=== PATIENT | male | born 1970 | race Caucasian/White ===

== ENCOUNTER 2016-05-25 02:16 | Emergency (ER) | payer MEDICARE, MEDICAID ==
[2016-05-25] MEDS ORDERED: ASPIRIN 81 MG CHEW TABLET As Ordered ONE (03:27)
[2016-05-25 03:44] LABS: MEAN CORPUSCULAR HEMOGLOBIN 29.7 pg (27.0-33.0); MEAN CORPUSCULAR HGB CONC 36.7 g/dl (32.0-36.5); MEAN CORPUSCULAR VOLUME 80.8 fl (80.0-96.0); RED CELL DISTRIBUTION WIDTH 12.5 % (11.5-14.5); WHITE BLOOD COUNT 3.3 K/mm3 (4.0-10.0)
[2016-05-25 05:04] LABS: ANION GAP 10 MEQ/L (8-16); BLOOD UREA NITROGEN 12 MG/DL (7-18); CALCIUM LEVEL 8.5 MG/DL (8.5-10.1); CARBON DIOXIDE LEVEL 25 MEQ/L (21-32); CHLORIDE LEVEL 107 MEQ/L (98-107); CREATININE FOR GFR 1.07 MG/DL (0.70-1.30); GLOMERULAR FILTRATION RATE > 60.0 (>60); GLUCOSE, FASTING 112 MG/DL (70-105); SODIUM LEVEL 142 MEQ/L (136-145)
[2016-05-25] MEDS ORDERED: ISOVUE-370 76% 100ML VIAL (Q9967) As Ordered ONE (05:34)
--- NOTE | 2016-05-25 07:16 | ECGEPIP ---
Stationary ECG Study 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
--- NOTE | 2016-05-25 07:30 | REPUSA ---
CLINICAL HISTORY: Dyspnea, exclude PE. TECHNIQUE: Multiple incremental axial, coronal and oblique images are obtained from the thoracic inle t to the upper abdomen. Intravenous contrast material was administered as per pulmonary embolism prot ocol. COMMENTS: There is excellent opacification of pulmonary arterial system without evidence for pulmonary embolism . Aorta is of normal caliber without evidence for dissection or aneurysm. There is no evidence of pleural or parenchymal mass. Bilateral basilar atelectatic pulmonary changes. There are no pleural effusions. There is no evidence of hilar or mediastinal lymphadenopathy. The he art and great vessels are within normal limits. Images of the upper abdomen demonstrate no evidence of adrenal mass. The bony structures are free of lytic or blastic lesions. IMPRESSION: No evidence for pulmonary embolism. Bilateral basilar atelectatic pulmonary changes. Thank you for your kind referral of this patient.
--- NOTE | 2016-05-25 07:40 | REPUSA ---
CLINICAL HISTORY: Dyspnea, exclude PE. TECHNIQUE: Multiple incremental axial, coronal and oblique images are obtained from the thoracic inle t to the upper abdomen. Intravenous contrast material was administered as per pulmonary embolism prot ocol. COMMENTS: There is excellent opacification of pulmonary arterial system without evidence for pulmonary embolism. Aorta is of normal caliber without evidence for dissection or aneurysm. There is no evidence of pleural or parenchymal mass. Bilateral basilar atelectatic pulmonary changes. There are no pleural effusions. There is no evidence of hilar or mediastinal lymphadenopathy. The heart and great vessels are within normal limits. Images of the upper abdomen demonstrate no evidence of adrenal mass. The bony structures are free of lytic or blastic lesions. IMPRESSION: No evidence for pulmonary embolism. Bilateral basilar atelectatic pulmonary changes. Thank you for your kind referral of this patient.
--- NOTE | 2016-05-25 10:20 | EDDOCDS ---
Physician Documentation [facility] Name: Ramírez Diaz Jr Age: 45 yrs Sex: Male : 1970 Arrival Date: 05/25/2016 Time: 02:16 Bed OBSERVATION Private MD: Raisa Sagastume Disposition: 05/25/16 09:58 Discharged to Home/Self Care. Impression: Other chest pain. - Condition is Stable. - Discharge Instructions: Angina Pectoris, Pleurisy, Nonspecific Chest Pain, Chest Wall Pain, Costochondritis. - Prescriptions for Naprosyn 500 mg Oral Tablet - take 1 tablet by ORAL route 2 times per day take with food; 30 tablet. Aspirin 81 mg - take 1 tablet by ORAL route once daily; 90 tablet. - Medication Reconciliation, Local Pharmacy Hours form. - Follow up: Raisa Sagastume; When: 1 - 2 days. - Problem is new. - Symptoms have improved. Historical: - Allergies: PENICILLINS; - Home Meds: 1. none - PMHx: Crohn's; - PSHx: none; - Social history: Smoking status: Chewing Tobacco Patient/guardian denies using alcohol, street drugs, No barriers to communication noted, The patient speaks fluent Togolese. - Family history: Not pertinent. - : The pt / caregiver states he / she is not on anticoagulants. Home medication list is obtained from the patient. - Exposure Risk Screening:: None identified. Vital Signs: 05/25 02:49 BP 139 / 82 (auto/); jp6 02:50 Pulse 88 MON; Pulse Ox 97% ; jp6 03:04 BP 142 / 79 (auto/); jp6 03:04 Pulse 84 MON; Pulse Ox 96% ; jp6 03:19 BP 143 / 76 (auto/); jp6 03:19 Pulse 88 MON; Pulse Ox 95% ; jp6 03:34 BP 131 / 68 (auto/); jp6 03:34 Pulse 86 MON; Pulse Ox 96% ; jp6 03:49 BP 144 / 77 (auto/); jp6 03:49 Pulse 92 MON; Pulse Ox 99% ; jp6 04:41 Pulse 94 MON; Pulse Ox 98% ; jp6 05:03 Pulse 98 MON; Pulse Ox 97% ; jp6 05:30 Pulse 96 MON; Pulse Ox 98% ; jp6 06:00 Pulse 88 MON; Pulse Ox 98% ; jp6 06:30 Pulse 86 MON; Pulse Ox 98% ; jp6 06:30 BP 147 / 92; Pulse 84; Resp 16; Pulse Ox 99% on R/A; Pain 0/10; jp6 07:06 BP 148 / 65 (auto/); po 07:08 Pulse 86 MON; Resp 20; Temp 96.9(O); Pulse Ox 99% on 2 lpm NC; Pain 0/10; po 08:06 BP 126 / 71 (auto/); po 08:06 Pulse 86 MON; Resp 18; Pulse Ox 98% on 2 lpm NC; Pain 0/10; po 08:36 BP 135 / 77 (auto/); po 08:36 Pulse 84 MON; Resp 20; Pulse Ox 98% on 2 lpm NC; Pain 0/10; po 09:24 BP 134 / 71 (auto/); po 09:27 Pulse 80 MON; Resp 20; Pulse Ox 96% on 2 lpm NC; po 10:15 BP 136 / 78; Pulse 82 MON; Resp 18; Temp 96.7(O); Pulse Ox 96% on R/A; Pain 0/10; po MDM: 02:40 ECG WITH READING ER PHYS+CARDIAG ordered. EDMS 02:44 Aspirin 324 mg PO once ordered. cs11 02:49 IV Saline Lock ordered. cs11 02:49 Oxygen at 2L/min via NC ordered. cs11 02:50 Chest, 1 View Ordered. EDMS 02:51 CBC Ordered. EDMS 02:51 MED Profile Ordered. EDMS 02:51 Pt & Aptt Ordered. EDMS 02:51 Cardiac Marker Panel Ordered. EDMS 03:03 Financial registration complete. pm4 03:58 [facility] [place] was scanned into [employer] and attached to record. pm4 05:12 CBC Reviewed. cs11 05:12 MED Profile Reviewed. cs11 05:12 Pt & Aptt Reviewed. cs11 05:12 Cardiac Marker Panel Reviewed. cs11 05:12 NS 0.9% 1000 ml IV at bolus once ordered. cs11 05:13 CT Chest Angio R/O PE Ordered. EDMS 06:28 Misc Image Editor Order ordered. cs11 06:49 Misc Image Editor Order complete. deg 06:49 CARDIAC MARKER PANEL Ordered. EDMS 06:50 ECG WITH READING ER PHYS ordered. EDMS 09:19 EKG-ADULT Reviewed. sd1 09:19 Chest, 1 View Reviewed. sd1 09:19 CT Chest Angio R/O PE Reviewed. sd1 09:49 CARDIAC MARKER PANEL Reviewed. sd1 Administered Medications: 03:00 Drug: Aspirin 324 mg [aspirin 81 mg chewable tablet (4 tabs)] Route: PO; jp6 05:47 Drug: NS 0.9% 1000 ml [sodium chloride 0.9 % intravenous solution] Route: IV; Rate: jp6 bolus; Site: left antecubital; 08:27 Follow up: IV Status: Completed infusion; IV Intake: 1000ml po Signatures: Dispatcher [employer] EDPauline Myers MD MD sd1 Khalida Lee, Glaze Handler Unit deg Xu Rolle,RN RN po Fortino Austin, DO cs11 Geraldine Alicia RN RN jp6 Hiren Holden, Reg Reg pm4 The chart was reviewed and I authenticate all verbal orders and agree with the evaluation and treatment provided.Attachments: 03:58 [facility] Payment Agreement pm4 MTDD
--- NOTE | 2016-05-25 10:20 | EDDOCDS ---
Nurse's Notes [facility] Name: Bishop Sawant Jr Age: 45 yrs Sex: Male : 1970 Arrival Date: 05/25/2016 Time: 02:16 Bed OBSERVATION Private MD: Raisa Sagastume Diagnosis: Other chest pain Presentation: 05/25 02:31 Presenting complaint: Patient states: started with chest pain around 2300 w/ left arm jp6 numbness slight sob and heart racing. Aspirin was not taken prior to arrival. Adult Sepsis Screening: The patient does not have new or worsening altered mentation. Patient's respiratory rate is less than 22. Systolic blood pressure is greater than 100. Patient has a qSOFA score of 0- Negative Sepsis Screen. Suicide/Homicide risk assessment- the patient denies having any suicidal and/or homicidal ideations and does not present with any other emotional, behavioral or mental health complaints. Status: Patient is not a intermodal customer service or dependent. Transition of care: patient was not received from another setting of care. 02:31 Acuity: EVE Level 3 jp6 02:31 Method Of Arrival: Ambulance jp6 Triage Assessment: 02:34 General: Appears in no apparent distress, comfortable, Behavior is appropriate for age, jp6 cooperative. Pain: Denies pain. Pt Declines HIV testing. The patient is triaged at the bedside. See Assessment in Nurses Notes section of ED record. Neurological: No deficits noted. Level of Consciousness is awake, alert, Oriented to person, place, time. EENT: No deficits noted. Cardiovascular: Capillary refill < 3 seconds Heart tones S1 S2 Edema is absent. Chest pain. Respiratory: No deficits noted. Airway is patent Respiratory effort is even, unlabored, Respiratory pattern is regular, symmetrical, Breath sounds are clear bilaterally. GI: No deficits noted. : No deficits noted. Derm: Skin is pink, warm & dry. Musculoskeletal: No deficits noted. Historical: - Allergies: PENICILLINS; - Home Meds: 1. none - PMHx: Crohn's; - PSHx: none; - Social history: Smoking status: Chewing Tobacco Patient/guardian denies using alcohol, street drugs, No barriers to communication noted, The patient speaks fluent Ethiopian. - Family history: Not pertinent. - : The pt / caregiver states he / she is not on anticoagulants. Home medication list is obtained from the patient. - Exposure Risk Screening:: None identified. Screenin:49 Screening information is obtained from the patient. Fall risk: No risks identified. jp6 Assistance ADL's: requires no assistance with activities of daily living. Abuse/DV Screen: The patient / caregiver reports he/she is: not in a situation that causes fear, pain or injury. Nutritional screening: No deficits noted. Advance Directives: Currently, there is no health care proxy. There is no active DNR order. There is no living will. home support is adequate. Assessment: 03:52 Reassessment: Patient appears in no apparent distress at this time. Patient denies pain jp6 at this time. Patient states symptoms have improved. General: Appears in no apparent distress, comfortable, Behavior is appropriate for age, cooperative. Pain: Denies pain. Neurological: No deficits noted. EENT: No deficits noted. Cardiovascular: Rhythm is sinus rhythm No ectopy. Respiratory: No deficits noted. GI: No deficits noted. : No deficits noted. Derm: Skin is pink, warm & dry. Musculoskeletal: No deficits noted. 05:08 Reassessment: Patient appears in no apparent distress at this time. General: Appears in jp6 no apparent distress, comfortable. Pain: Denies pain. Neurological: Level of Consciousness is awake, alert, Oriented to person, place, time. Cardiovascular: Capillary refill < 3 seconds Rhythm is sinus rhythm No ectopy. Respiratory: Airway is patent Respiratory effort is even, unlabored, Respiratory pattern is regular, symmetrical. Derm: Skin is pink, warm & dry. 06:15 Reassessment: Patient appears in no apparent distress at this time. Patient states jp6 symptoms have improved. General: Appears in no apparent distress, comfortable, Behavior is appropriate for age, cooperative. Pain: Denies pain. Neurological: No deficits noted. EENT: No deficits noted. Cardiovascular: Capillary refill < 3 seconds Rhythm is sinus rhythm No ectopy. Respiratory: No deficits noted. GI: No deficits noted. : No deficits noted. Derm: Skin is pink, warm & dry. Musculoskeletal: No deficits noted. 07:20 Adult Sepsis Screening: The patient does not have new or worsening altered mentation. po Patient's respiratory rate is less than 22. Systolic blood pressure is greater than 100. Patient has a qSOFA score of 0- Negative Sepsis Screen. General: Appears in no apparent distress, comfortable, Behavior is appropriate for age, cooperative, pleasant. Pain: Denies pain. Neurological: Level of Consciousness is awake, alert, Oriented to person, place, time. Cardiovascular: Rhythm is sinus rhythm. Respiratory: Airway is patent Respiratory effort is even, unlabored. GI: Abdomen is obese, Bowel sounds present X 4 quads. Derm: Skin is intact, is healthy with good turgor, Skin is pink, warm & dry. 08:25 General: Appears in no apparent distress, comfortable, Behavior is appropriate for age, po cooperative, pleasant. Pain: Denies pain. Neurological: No deficits noted. Cardiovascular: Rhythm is sinus rhythm Chest pain is denied. Respiratory: Airway is patent Respiratory effort is even, unlabored. Derm: Skin is pink, warm & dry. 09:31 Adult Sepsis Screening: The patient does not have new or worsening altered mentation. po Patient's respiratory rate is less than 22. Systolic blood pressure is greater than 100. Patient has a qSOFA score of 0- Negative Sepsis Screen. 09:31 General: Appears in no apparent distress, comfortable, Behavior is appropriate for age, po cooperative. Pain: Denies pain. Neurological: No deficits noted. Cardiovascular: Rhythm is sinus rhythm Chest pain is denied. Respiratory: Airway is patent Respiratory effort is even, unlabored, Breath sounds are clear bilaterally. Derm: Skin is pink, warm & dry. 10:16 General: Appears in no apparent distress, comfortable, Behavior is appropriate for age, po cooperative, pleasant. Pain: Denies pain. Neurological: No deficits noted. Cardiovascular: Rhythm is sinus rhythm Chest pain is denied. Respiratory: Airway is patent Respiratory effort is even, unlabored. GI: No deficits noted. Derm: Skin is intact, is healthy with good turgor, Skin is pink, warm & dry. Vital Signs: 02:49 BP 139 / 82 (auto/); jp6 02:50 Pulse 88 MON; Pulse Ox 97% ; jp6 03:04 BP 142 / 79 (auto/); jp6 03:04 Pulse 84 MON; Pulse Ox 96% ; jp6 03:19 BP 143 / 76 (auto/); jp6 03:19 Pulse 88 MON; Pulse Ox 95% ; jp6 03:34 BP 131 / 68 (auto/); jp6 03:34 Pulse 86 MON; Pulse Ox 96% ; jp6 03:49 BP 144 / 77 (auto/); jp6 03:49 Pulse 92 MON; Pulse Ox 99% ; jp6 04:41 Pulse 94 MON; Pulse Ox 98% ; jp6 05:03 Pulse 98 MON; Pulse Ox 97% ; jp6 05:30 Pulse 96 MON; Pulse Ox 98% ; jp6 06:00 Pulse 88 MON; Pulse Ox 98% ; jp6 06:30 Pulse 86 MON; Pulse Ox 98% ; jp6 06:30 BP 147 / 92; Pulse 84; Resp 16; Pulse Ox 99% on R/A; Pain 0/10; jp6 07:06 BP 148 / 65 (auto/); po 07:08 Pulse 86 MON; Resp 20; Temp 96.9(O); Pulse Ox 99% on 2 lpm NC; Pain 0/10; po 08:06 BP 126 / 71 (auto/); po 08:06 Pulse 86 MON; Resp 18; Pulse Ox 98% on 2 lpm NC; Pain 0/10; po 08:36 BP 135 / 77 (auto/); po 08:36 Pulse 84 MON; Resp 20; Pulse Ox 98% on 2 lpm NC; Pain 0/10; po 09:24 BP 134 / 71 (auto/); po 09:27 Pulse 80 MON; Resp 20; Pulse Ox 96% on 2 lpm NC; po 10:15 BP 136 / 78; Pulse 82 MON; Resp 18; Temp 96.7(O); Pulse Ox 96% on R/A; Pain 0/10; po Vitals: 02:34 Log In Time N/A - ambulance arrival. jp6 ED Course: 02:17 Patient visited by Catina Hernandez PCA. tmm1 02:17 Raisa Sagastume is Private Physician. tmm1 02:17 Patient moved to Waiting tmm1 02:18 Patient moved to 18 tmm1 02:21 Geraldine Alicia,RN is Primary Nurse. jp6 02:31 Patient visited by Geraldine Alicia,CHATNAL. jp6 02:33 Triage Initiated jp6 02:35 Fortino Strickland DO is Attending Physician. cs11 02:35 Patient visited by Fortino Strickland DO. cs11 03:41 Patient visited by Geraldine Alicia,CHANTAL. jp6 03:41 Cardiac Marker Panel Sent. jp6 03:41 Pt & Aptt Sent. jp6 03:41 MED Profile Sent. jp6 03:41 CBC Sent. jp6 03:49 The patient / caregiver is instructed regarding the plan of care and ED course. Cardiac jp6 monitor on. Pulse ox on. NIBP on. 03:49 Maintain field IV. Dressing intact. Site clean & dry. Gauge & site: 18g left ac. IV jp6 with fluids not infusing freely, without good blood return. 03:49 Discontinued lock bleeding controlled, pressure dressing applied, No redness/swelling jp6 at site. 03:49 Inserted saline lock: 20 gauge in left hand and blood collected. No procedures done jp6 that require assistance. Labs drawn. (by ED staff). EKG done. (by ED staff). Reviewed by Fortino Strickland DO. O2 via nasal cannula \T\ 2L/min. 03:58 [facility] Payment Agreement was scanned into [employer] and attached to record. pm4 04:47 Patient visited by Geraldine Alicia RN. jp6 05:48 Patient visited by Geraldine Alicia RN. jp6 07:02 Attending Physician role handed off by Fortino Strickland DO sd1 07:02 Pauline Lr MD is Attending Physician. sd1 07:08 Placed in gown. Bed in low position. Call light in reach. po 07:08 IV is patent, is intact, is free of redness or swelling. with fluids infusing freely. po 07:09 Primary Nurse role handed off by Geraldine Alicia RN deg 07:23 EKG-ADULT Returned. EDMS 07:28 Xu Rolle RN is Primary Nurse. po 07:31 Patient moved to OBSERVATION sd1 08:05 Chest, 1 View Returned. EDMS 08:05 CT Chest Angio R/O PE Returned. EDMS 08:06 Patient visited by Xu Rolle RN. po 08:28 No apparent distress. Resting quietly. Pt visited by . po 08:28 Patient visited by Xu Rolle,CHANTAL. po 09:58 Raisa Sagastume is Referral Physician. sd1 10:15 Discontinued IV lock intact, bleeding controlled, pressure dressing applied, No po redness/swelling at site. Administered Medications: 03:00 Drug: Aspirin 324 mg [aspirin 81 mg chewable tablet (4 tabs)] Route: PO; jp6 05:47 Drug: NS 0.9% 1000 ml [sodium chloride 0.9 % intravenous solution] Route: IV; Rate: jp6 bolus; Site: left antecubital; Follow up: IV Status: Completed infusion; IV Intake: 1000ml po Intake: : IV: 1000.00ml; Total: 1000.00ml. po Order Results: Lab Order: CBC; [facility]05/25/16 03:38 Test: WHITE BLOOD COUNT; Value: 3.3; Range: 4.0-10.0; Abnormal: Below low normal; Units: K/mm3; Status: F Test: RED BLOOD COUNT; Value: 5.32; Range: 4.30-6.10; Units: M/mm3; Status: F Test: HEMOGLOBIN; Value: 15.8; Range: 14.0-18.0; Units: g/dl; Status: F Test: HEMATOCRIT; Value: 43.0; Range: 42.0-52.0; Units: %; Status: F Test: MEAN CORPUSCULAR VOLUME; Value: 80.8; Range: 80.0-96.0; Units: fl; Status: F Test: MEAN CORPUSCULAR HEMOGLOBIN; Value: 29.7; Range: 27.0-33.0; Units: pg; Status: F Test: MEAN CORPUSCULAR HGB CONC; Value: 36.7; Range: 32.0-36.5; Abnormal: Above high normal; Units: g/dl; Status: F Test: RED CELL DISTRIBUTION WIDTH; Value: 12.5; Range: 11.5-14.5; Units: %; Status: F Test: PLATELET COUNT, AUTOMATED; Value: 201; Range: 150-450; Units: k/mm3; Status: F Lab Order: MED Profile; SPEC05/25/16 04:32 Test: GLUCOSE, FASTING; Value: 112; Range: 70-105; Abnormal: Above high normal; Units: MG/DL; Status: F Test: BLOOD UREA NITROGEN; Value: 12; Range: 7-18; Units: MG/DL; Status: F Test: CREATININE FOR GFR; Value: 1.07; Range: 0.70-1.30; Units: MG/DL; Status: F Test: GLOMERULAR FILTRATION RATE; Value: > 60.0; Range: >60; Status: F Test: SODIUM LEVEL; Value: 142; Range: 136-145; Units: MEQ/L; Status: F Test: POTASSIUM SERUM; Value: 4.0; Range: 3.5-5.1; Units: MEQ/L; Status: F Test: CHLORIDE LEVEL; Value: 107; Range: 98-107; Units: MEQ/L; Status: F Test: CARBON DIOXIDE LEVEL; Value: 25; Range: 21-32; Units: MEQ/L; Status: F Test: ANION GAP; Value: 10; Range: 8-16; Units: MEQ/L; Status: F Test: CALCIUM LEVEL; Value: 8.5; Range: 8.5-10.1; Units: MG/DL; Status: F Test Note: ; Units are mL/min/1.73 m2 Chronic Kidney Disease Staging per NKF: Stage I & II GFR >=60 Normal to Mildly Decreased Stage III GFR 30-59 Moderately Decreased Stage IV GFR 15-29 Severely Decreased Stage V GFR <15 Very Little GFR Left ESRD GFR <15 on APPLIANCE REPAIRER Lab Order: Pt & Aptt; 05/25/16 04:32 Test: PROTHROMBIN TIME; Value: 13.3; Range: 12.3-14.5; Units: SECONDS; Status: F Test: INR; Value: 1.00; Status: F Test: PARTIAL THROMBOPLASTIN TIME; Value: 30.4; Range: 26.6-37.1; Units: SECONDS; Status: F Test Note: ; THERAPUTIC HUMAN INR VALUES INDICATIONS NORMAL RANGES PROPHYLAXIS/TREATMENT OF: VENOUS THROMBOSIS 2.0-3.0 PULMONARY EMBOLISM 2.0-3.0 PREVENTION OF SYSTEMIC EMBOLISM FROM: TISSUE HEART VALVES 2.0-3.0 ACUTE MYOCARDIAL INFARCTION 2.0-3.0 VALVULAR HEART DISEASE 2.0-3.0 ATRIAL FIBRILLATION 2.0-3.0 MECHANICAL VALVES(HIGH RISK) 2.5-3.5 RECURRENT MYOCARDIAL INFARCTION 2.5-3.5 Lab Order: Cardiac Marker Panel; SPEC05/25/16 04:32 Test: CPK CREATINE PHOSPHOKINASE; Value: 61; Range: 39-308; Units: U/L; Status: F Test: CK-MB VALUE MASS; Value: 1.0; Range: 0.0-3.6; Units: NG/ML; Status: F Test: MB/CK RELATIVE INDEX; Value: 1.63; Range: < OR =4; Status: F Test: TROPONIN I; Value: < 0.02; Range: < 0.10; Units: NG/ML; Status: F Test Note: ; DIAGNOSIS CRITERIA MMB ng/ml Relative Index (RI) NON-AMI < or = 5 N/A [place]ONE > 5 < or = 4 AMI > 5 > 4 Lab Order: CARDIAC MARKER PANEL; SPEC'M 05/25/16 09:20 Test: CPK CREATINE PHOSPHOKINASE; Value: 54; Range: 39-308; Units: U/L; Status: F Test: CK-MB VALUE MASS; Value: 1.0; Range: 0.0-3.6; Units: NG/ML; Status: F Test: MB/CK RELATIVE INDEX; Value: 1.85; Range: < OR =4; Status: F Test: TROPONIN I; Value: < 0.02; Range: < 0.10; Units: NG/ML; Status: F Test Note: ; DIAGNOSIS CRITERIA MMB ng/ml Relative Index (RI) NON-AMI < or = 5 N/A AL[place]ES ZONE > 5 < or = 4 AMI > 5 > 4 Radiology Order: EKG-ADULT Test: EKG-ADULT REASON FOR EXAMINATION: Chest Pain; Stationary ECG Study; [facility] - ED; ; Test Date: 2016-05-25; Pat Name: BISHOP SAWANT JR Department:; Room: -; 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 Intravenous contrast material was administered as per pulmonary embolism prot; ocol.; COMMENTS:; There is excellent opacification of pulmonary arterial system without evidence for pulmonary embolism; . Aorta is of normal caliber without evidence for dissection or aneurysm.; There is no evidence of pleural or parenchymal mass. Bilateral basilar atelectatic pulmonary changes.; There are no pleural effusions. There is no evidence of hilar or mediastinal lymphadenopathy. The he; art and great vessels are within normal limits.; Images of the upper abdomen demonstrate no evidence of adrenal mass.; The bony structures are free of lytic or blastic lesions.; IMPRESSION:; No evidence for pulmonary embolism.; Bilateral basilar atelectatic pulmonary changes.; Thank you for your kind referral of this patient.; ; Radiology Order: CT Chest Angio R/O PE Test: CT Chest Angio R/O PE REASON FOR EXAMINATION: Chest Pain; ; CLINICAL HISTORY: Dyspnea, exclude PE.; TECHNIQUE: Multiple incremental axial, coronal and oblique images are obtained from the thoracic inle; t to the upper abdomen. Intravenous contrast material was administered as per pulmonary embolism prot; ocol.; COMMENTS:; There is excellent opacification of pulmonary arterial system without evidence for pulmonary; embolism. Aorta is of normal caliber without evidence for dissection or aneurysm.; There is no evidence of pleural or parenchymal mass. Bilateral basilar atelectatic pulmonary; changes. There are no pleural effusions. There is no evidence of hilar or mediastinal; lymphadenopathy. The heart and great vessels are within normal limits.; Images of the upper abdomen demonstrate no evidence of adrenal mass.; The bony structures are free of lytic or blastic lesions.; IMPRESSION:; No evidence for pulmonary embolism.; Bilateral basilar atelectatic pulmonary changes.; Thank you for your kind referral of this patient.; ; Outcome: 09:58 Discharge ordered by Provider. sd1 10:18 Discharge Assessment: patient administered narcotics - no. The following High Risk po Discharge criteria are identified: None. Discharged to home ambulatory. Condition: improved. Discharge instructions given to patient, Instructed on discharge instructions, follow up and referral plans. medication usage, Demonstrated understanding of instructions, medications, Pt was receptive of discharge instructions/ teaching. Prescriptions given X 2. CT Study completed. Property sent home with patient. 10:19 Patient left the ED. po Signatures: Dispatcher [employer] EDMS Pauline Lr MD MD sd1 Khalida Lee, Lesson Instructor Unit deg Xu Rolle,RN RN po Fortino Strickland, DO cs11 Catina Hernandez, DELICATESSEN GOODS STOCK CLERK DELICATESSEN GOODS STOCK CLERK tmm1 Geraldine Alicia,CHANTAL RN jp6 Hiren Holden, Reg Reg pm4 MTDD
--- NOTE | 2016-05-26 07:22 | ECGEPIP ---
Stationary ECG Study [place] - ED Test Date: 2016-05-25 Pat Name: BISHOP SAWANT JR Department: Room: - Gender: M Vice President Process: adam : 1970 Requested By: BRIE STRICKLAND Order Number: [id number] Reading MD: Pauline Lr Measurements Intervals [place] Rate: 82 P: 67 [place]: 177 QRS: 56 QRSD: 97 T: 35 QT: 373 QTc: 438 Interpretive Statements SINUS RHYTHM SIMILAR 05/25/16 2:41 Electronically Signed On 05-26-2016 7:21:45 EST by Pauline Lr
--- NOTE | 2016-05-27 11:20 | EDDOCDS ---
Nurse's Notes [facility] Name: Bishop Sawant Jr Age: 45 yrs Sex: Male : 1970 Arrival Date: 05/25/2016 Time: 02:16 Bed OBSERVATION Private MD: Raisa Sagastume Diagnosis: Other chest pain Presentation: 05/25 02:31 Presenting complaint: Patient states: started with chest pain around 2300 w/ left arm jp6 numbness slight sob and heart racing. Aspirin was not taken prior to arrival. Adult Sepsis Screening: The patient does not have new or worsening altered mentation. Patient's respiratory rate is less than 22. Systolic blood pressure is greater than 100. Patient has a qSOFA score of 0- Negative Sepsis Screen. Suicide/Homicide risk assessment- the patient denies having any suicidal and/or homicidal ideations and does not present with any other emotional, behavioral or mental health complaints. Status: Patient is not a human resources services specialist or dependent. Transition of care: patient was not received from another setting of care. 02:31 Acuity: EVE Level 3 jp6 02:31 Method Of Arrival: Ambulance jp6 Triage Assessment: 02:34 General: Appears in no apparent distress, comfortable, Behavior is appropriate for age, jp6 cooperative. Pain: Denies pain. Pt Declines HIV testing. The patient is triaged at the bedside. See Assessment in Nurses Notes section of ED record. Neurological: No deficits noted. Level of Consciousness is awake, alert, Oriented to person, place, time. EENT: No deficits noted. Cardiovascular: Capillary refill < 3 seconds Heart tones S1 S2 Edema is absent. Chest pain. Respiratory: No deficits noted. Airway is patent Respiratory effort is even, unlabored, Respiratory pattern is regular, symmetrical, Breath sounds are clear bilaterally. GI: No deficits noted. : No deficits noted. Derm: Skin is pink, warm & dry. Musculoskeletal: No deficits noted. Historical: - Allergies: PENICILLINS; - Home Meds: 1. none - PMHx: Crohn's; - PSHx: none; - Social history: Smoking status: Chewing Tobacco Patient/guardian denies using alcohol, street drugs, No barriers to communication noted, The patient speaks fluent Citizen [place]. - Family history: Not pertinent. - : The pt / caregiver states he / she is not on anticoagulants. Home medication list is obtained from the patient. - Exposure Risk Screening:: None identified. Screenin:49 Screening information is obtained from the patient. Fall risk: No risks identified. jp6 Assistance ADL's: requires no assistance with activities of daily living. Abuse/DV Screen: The patient / caregiver reports he/she is: not in a situation that causes fear, pain or injury. Nutritional screening: No deficits noted. Advance Directives: Currently, there is no health care proxy. There is no active DNR order. There is no living will. home support is adequate. Assessment: 03:52 Reassessment: Patient appears in no apparent distress at this time. Patient denies pain jp6 at this time. Patient states symptoms have improved. General: Appears in no apparent distress, comfortable, Behavior is appropriate for age, cooperative. Pain: Denies pain. Neurological: No deficits noted. EENT: No deficits noted. Cardiovascular: Rhythm is sinus rhythm No ectopy. Respiratory: No deficits noted. GI: No deficits noted. : No deficits noted. Derm: Skin is pink, warm & dry. Musculoskeletal: No deficits noted. 05:08 Reassessment: Patient appears in no apparent distress at this time. General: Appears in jp6 no apparent distress, comfortable. Pain: Denies pain. Neurological: Level of Consciousness is awake, alert, Oriented to person, place, time. Cardiovascular: Capillary refill < 3 seconds Rhythm is sinus rhythm No ectopy. Respiratory: Airway is patent Respiratory effort is even, unlabored, Respiratory pattern is regular, symmetrical. Derm: Skin is pink, warm & dry. 06:15 Reassessment: Patient appears in no apparent distress at this time. Patient states jp6 symptoms have improved. General: Appears in no apparent distress, comfortable, Behavior is appropriate for age, cooperative. Pain: Denies pain. Neurological: No deficits noted. EENT: No deficits noted. Cardiovascular: Capillary refill < 3 seconds Rhythm is sinus rhythm No ectopy. Respiratory: No deficits noted. GI: No deficits noted. : No deficits noted. Derm: Skin is pink, warm & dry. Musculoskeletal: No deficits noted. 07:20 Adult Sepsis Screening: The patient does not have new or worsening altered mentation. po Patient's respiratory rate is less than 22. Systolic blood pressure is greater than 100. Patient has a qSOFA score of 0- Negative Sepsis Screen. General: Appears in no apparent distress, comfortable, Behavior is appropriate for age, cooperative, pleasant. Pain: Denies pain. Neurological: Level of Consciousness is awake, alert, Oriented to person, place, time. Cardiovascular: Rhythm is sinus rhythm. Respiratory: Airway is patent Respiratory effort is even, unlabored. GI: Abdomen is obese, Bowel sounds present X 4 quads. Derm: Skin is intact, is healthy with good turgor, Skin is pink, warm & dry. 08:25 General: Appears in no apparent distress, comfortable, Behavior is appropriate for age, po cooperative, pleasant. Pain: Denies pain. Neurological: No deficits noted. Cardiovascular: Rhythm is sinus rhythm Chest pain is denied. Respiratory: Airway is patent Respiratory effort is even, unlabored. Derm: Skin is pink, warm & dry. 09:31 Adult Sepsis Screening: The patient does not have new or worsening altered mentation. po Patient's respiratory rate is less than 22. Systolic blood pressure is greater than 100. Patient has a qSOFA score of 0- Negative Sepsis Screen. 09:31 General: Appears in no apparent distress, comfortable, Behavior is appropriate for age, po cooperative. Pain: Denies pain. Neurological: No deficits noted. Cardiovascular: Rhythm is sinus rhythm Chest pain is denied. Respiratory: Airway is patent Respiratory effort is even, unlabored, Breath sounds are clear bilaterally. Derm: Skin is pink, warm & dry. 10:16 General: Appears in no apparent distress, comfortable, Behavior is appropriate for age, po cooperative, pleasant. Pain: Denies pain. Neurological: No deficits noted. Cardiovascular: Rhythm is sinus rhythm Chest pain is denied. Respiratory: Airway is patent Respiratory effort is even, unlabored. GI: No deficits noted. Derm: Skin is intact, is healthy with good turgor, Skin is pink, warm & dry. Vital Signs: 02:49 BP 139 / 82 (auto/); jp6 02:50 Pulse 88 MON; Pulse Ox 97% ; jp6 03:04 BP 142 / 79 (auto/); jp6 03:04 Pulse 84 MON; Pulse Ox 96% ; jp6 03:19 BP 143 / 76 (auto/); jp6 03:19 Pulse 88 MON; Pulse Ox 95% ; jp6 03:34 BP 131 / 68 (auto/); jp6 03:34 Pulse 86 MON; Pulse Ox 96% ; jp6 03:49 BP 144 / 77 (auto/); jp6 03:49 Pulse 92 MON; Pulse Ox 99% ; jp6 04:41 Pulse 94 MON; Pulse Ox 98% ; jp6 05:03 Pulse 98 MON; Pulse Ox 97% ; jp6 05:30 Pulse 96 MON; Pulse Ox 98% ; jp6 06:00 Pulse 88 MON; Pulse Ox 98% ; jp6 06:30 Pulse 86 MON; Pulse Ox 98% ; jp6 06:30 BP 147 / 92; Pulse 84; Resp 16; Pulse Ox 99% on R/A; Pain 0/10; jp6 07:06 BP 148 / 65 (auto/); po 07:08 Pulse 86 MON; Resp 20; Temp 96.9(O); Pulse Ox 99% on 2 lpm NC; Pain 0/10; po 08:06 BP 126 / 71 (auto/); po 08:06 Pulse 86 MON; Resp 18; Pulse Ox 98% on 2 lpm NC; Pain 0/10; po 08:36 BP 135 / 77 (auto/); po 08:36 Pulse 84 MON; Resp 20; Pulse Ox 98% on 2 lpm NC; Pain 0/10; po 09:24 BP 134 / 71 (auto/); po 09:27 Pulse 80 MON; Resp 20; Pulse Ox 96% on 2 lpm NC; po 10:15 BP 136 / 78; Pulse 82 MON; Resp 18; Temp 96.7(O); Pulse Ox 96% on R/A; Pain 0/10; po Vitals: 02:34 Log In Time N/A - ambulance arrival. jp6 ED Course: 02:17 Patient visited by Catina Hernandez PCA. tmm1 02:17 Raisa Sagastume is Private Physician. tmm1 02:17 Patient moved to Waiting tmm1 02:18 Patient moved to 18 tmm1 02:21 Geraldine Alicia,RN is Primary Nurse. jp6 02:31 Patient visited by Geraldine Alicia,CHANTAL. jp6 02:33 Triage Initiated jp6 02:35 Fortino Strickland DO is Attending Physician. cs11 02:35 Patient visited by Fortino Strickland DO. cs11 03:41 Patient visited by Geraldine Alicia,CHANTAL. jp6 03:41 Cardiac Marker Panel Sent. jp6 03:41 Pt & Aptt Sent. jp6 03:41 MED Profile Sent. jp6 03:41 CBC Sent. jp6 03:49 The patient / caregiver is instructed regarding the plan of care and ED course. Cardiac jp6 monitor on. Pulse ox on. NIBP on. 03:49 Maintain field IV. Dressing intact. Site clean & dry. Gauge & site: 18g left ac. IV jp6 with fluids not infusing freely, without good blood return. 03:49 Discontinued lock bleeding controlled, pressure dressing applied, No redness/swelling jp6 at site. 03:49 Inserted saline lock: 20 gauge in left hand and blood collected. No procedures done jp6 that require assistance. Labs drawn. (by ED staff). EKG done. (by ED staff). Reviewed by Fortino Strickland DO. O2 via nasal cannula \T\ 2L/min. 03:58 [facility] Payment Agreement was scanned into [email or web address] and attached to record. pm4 04:47 Patient visited by Geraldine Alicia RN. jp6 05:48 Patient visited by Geraldine Alicia RN. jp6 07:02 Attending Physician role handed off by Fortino Strickland DO sd1 07:02 Pauline Lr MD is Attending Physician. sd1 07:08 Placed in gown. Bed in low position. Call light in reach. po 07:08 IV is patent, is intact, is free of redness or swelling. with fluids infusing freely. po 07:09 Primary Nurse role handed off by Geraldine Alicia RN deg 07:23 EKG-ADULT Returned. EDMS 07:28 Xu Rolle,CHANTAL is Primary Nurse. po 07:31 Patient moved to OBSERVATION sd1 08:05 Chest, 1 View Returned. EDMS 08:05 CT Chest Angio R/O PE Returned. EDMS 08:06 Patient visited by Xu Rolle,CHANTAL. po 08:28 No apparent distress. Resting quietly. Pt visited by . po 08:28 Patient visited by Xu Rolle,CHANTAL. po 09:58 Raisa Sagastume is Referral Physician. sd1 10:15 Discontinued IV lock intact, bleeding controlled, pressure dressing applied, No po redness/swelling at site. 10:35 T-Sheet-- Draft Copy was scanned into [email or web address] and attached to record. [facility] 10:36 Radiology Report was scanned into [email or web address] and attached to record. seh 10:37 ECG/EKG was scanned into [email or web address] and attached to record. seh 13:09 Radiology Report was scanned into [email or web address] and attached to record. 05/26 07:25 ECG WITH READING ER PHYS Returned. EDMS Administered Medications: 05/25 03:00 Drug: Aspirin 324 mg [aspirin 81 mg chewable tablet (4 tabs)] Route: PO; jp6 05:47 Drug: NS 0.9% 1000 ml [sodium chloride 0.9 % intravenous solution] Route: IV; Rate: jp6 bolus; Site: left antecubital; 08:27 Follow up: IV Status: Completed infusion; IV Intake: 1000ml po Intake: : IV: 1000.00ml; Total: 1000.00ml. po Order Results: Lab Order: CBC; SPEC' 05/25/16 03:38 Test: WHITE BLOOD COUNT; Value: 3.3; Range: 4.0-10.0; Abnormal: Below low normal; Units: K/mm3; Status: F Test: RED BLOOD COUNT; Value: 5.32; Range: 4.30-6.10; Units: M/mm3; Status: F Test: HEMOGLOBIN; Value: 15.8; Range: 14.0-18.0; Units: g/dl; Status: F Test: HEMATOCRIT; Value: 43.0; Range: 42.0-52.0; Units: %; Status: F Test: MEAN CORPUSCULAR VOLUME; Value: 80.8; Range: 80.0-96.0; Units: fl; Status: F Test: MEAN CORPUSCULAR HEMOGLOBIN; Value: 29.7; Range: 27.0-33.0; Units: pg; Status: F Test: MEAN CORPUSCULAR HGB CONC; Value: 36.7; Range: 32.0-36.5; Abnormal: Above high normal; Units: g/dl; Status: F Test: RED CELL DISTRIBUTION WIDTH; Value: 12.5; Range: 11.5-14.5; Units: %; Status: F Test: PLATELET COUNT, AUTOMATED; Value: 201; Range: 150-450; Units: k/mm3; Status: F Lab Order: MED Profile; SPEC'05/25/16 04:32 Test: GLUCOSE, FASTING; Value: 112; Range: 70-105; Abnormal: Above high normal; Units: MG/DL; Status: F Test: BLOOD UREA NITROGEN; Value: 12; Range: 7-18; Units: MG/DL; Status: F Test: CREATININE FOR GFR; Value: 1.07; Range: 0.70-1.30; Units: MG/DL; Status: F Test: GLOMERULAR FILTRATION RATE; Value: > 60.0; Range: >60; Status: F Test: SODIUM LEVEL; Value: 142; Range: 136-145; Units: MEQ/L; Status: F Test: POTASSIUM SERUM; Value: 4.0; Range: 3.5-5.1; Units: MEQ/L; Status: F Test: CHLORIDE LEVEL; Value: 107; Range: 98-107; Units: MEQ/L; Status: F Test: CARBON DIOXIDE LEVEL; Value: 25; Range: 21-32; Units: MEQ/L; Status: F Test: ANION GAP; Value: 10; Range: 8-16; Units: MEQ/L; Status: F Test: CALCIUM LEVEL; Value: 8.5; Range: 8.5-10.1; Units: MG/DL; Status: F Test Note: ; Units are mL/min/1.73 m2 Chronic Kidney Disease Staging per NKF: Stage I & II GFR >=60 Normal to Mildly Decreased Stage III GFR 30-59 Moderately Decreased Stage IV GFR 15-29 Severely Decreased Stage V GFR <15 Very Little GFR Left ESRD GFR <15 on PHYSICAL SECURITY MANAGER Lab Order: Pt & Aptt; SPEC'M 05/25/16 04:32 Test: PROTHROMBIN TIME; Value: 13.3; Range: 12.3-14.5; Units: SECONDS; Status: F Test: INR; Value: 1.00; Status: F Test: PARTIAL THROMBOPLASTIN TIME; Value: 30.4; Range: 26.6-37.1; Units: SECONDS; Status: F Test Note: ; THERAPUTIC HUMAN INR VALUES INDICATIONS NORMAL RANGES PROPHYLAXIS/TREATMENT OF: VENOUS THROMBOSIS 2.0-3.0 PULMONARY EMBOLISM 2.0-3.0 PREVENTION OF SYSTEMIC EMBOLISM FROM: TISSUE HEART VALVES 2.0-3.0 ACUTE MYOCARDIAL INFARCTION 2.0-3.0 VALVULAR HEART DISEASE 2.0-3.0 ATRIAL FIBRILLATION 2.0-3.0 MECHANICAL VALVES(HIGH RISK) 2.5-3.5 RECURRENT MYOCARDIAL INFARCTION 2.5-3.5 Lab Order: Cardiac Marker Panel; SPEC'M 05/25/16 04:32 Test: CPK CREATINE PHOSPHOKINASE; Value: 61; Range: 39-308; Units: U/L; Status: F Test: CK-MB VALUE MASS; Value: 1.0; Range: 0.0-3.6; Units: NG/ML; Status: F Test: MB/CK RELATIVE INDEX; Value: 1.63; Range: < OR =4; Status: F Test: TROPONIN I; Value: < 0.02; Range: < 0.10; Units: NG/ML; Status: F Test Note: ; DIAGNOSIS CRITERIA MMB ng/ml Relative Index (RI) NON-AMI < or = 5 N/A [place]ONE > 5 < or = 4 AMI > 5 > 4 Lab Order: CARDIAC MARKER PANEL; SPEC'M 05/25/16 09:20 Test: CPK CREATINE PHOSPHOKINASE; Value: 54; Range: 39-308; Units: U/L; Status: F Test: CK-MB VALUE MASS; Value: 1.0; Range: 0.0-3.6; Units: NG/ML; Status: F Test: MB/CK RELATIVE INDEX; Value: 1.85; Range: < OR =4; Status: F Test: TROPONIN I; Value: < 0.02; Range: < 0.10; Units: NG/ML; Status: F Test Note: ; DIAGNOSIS CRITERIA MMB ng/ml Relative Index (RI) NON-AMI < or = 5 N/A [place]ES ZONE > 5 < or = 4 AMI > 5 > 4 Radiology Order: EKG-ADULT Test: EKG-ADULT REASON FOR EXAMINATION: Chest Pain; Stationary ECG Study; [facility] - ED; ; Test Date: 2016-05-25; Pat Name: BISHOP KENNYCASSIDY Department:; Room: -; Gender: M Inspector Repairer: surya; : 1970 Requested By: FORTINO STRICKLAND; Order Number: [id number] Kevin MD: Pauline Lr; Measurements; Intervals [place]; Rate: 86 P: 70; AR: 169 QRS: 58; QRSD: 101 T: 30; QT: 367; QTc: 440; Interpretive Statements; SINUS RHYTHM; SIMILAR 03/12/13; Electronically Signed On 05-25-2016 7:16:06 EST by Pauline Lr; Radiology Order: Chest, 1 View Test: Chest, 1 View REASON FOR EXAMINATION: Chest Pain; ; CLINICAL HISTORY: Dyspnea, exclude PE.; TECHNIQUE: Multiple incremental axial, coronal and oblique images are obtained from the thoracic inle; t to the upper abdomen. Intravenous contrast material was administered as per pulmonary embolism prot; ocol.; COMMENTS:; There is excellent opacification of pulmonary arterial system without evidence for pulmonary embolism; . Aorta is of normal caliber without evidence for dissection or aneurysm.; There is no evidence of pleural or parenchymal mass. Bilateral basilar atelectatic pulmonary changes.; There are no pleural effusions. There is no evidence of hilar or mediastinal lymphadenopathy. The he; art and great vessels are within normal limits.; Images of the upper abdomen demonstrate no evidence of adrenal mass.; The bony structures are free of lytic or blastic lesions.; IMPRESSION:; No evidence for pulmonary embolism.; Bilateral basilar atelectatic pulmonary changes.; Thank you for your kind referral of this patient.; ; Radiology Order: CT Chest Angio R/O PE Test: CT Chest Angio R/O PE REASON FOR EXAMINATION: Chest Pain; ; CLINICAL HISTORY: Dyspnea, exclude PE.; TECHNIQUE: Multiple incremental axial, coronal and oblique images are obtained from the thoracic inle; t to the upper abdomen. Intravenous contrast material was administered as per pulmonary embolism prot; ocol.; COMMENTS:; There is excellent opacification of pulmonary arterial system without evidence for pulmonary; embolism. Aorta is of normal caliber without evidence for dissection or aneurysm.; There is no evidence of pleural or parenchymal mass. Bilateral basilar atelectatic pulmonary; changes. There are no pleural effusions. There is no evidence of hilar or mediastinal; lymphadenopathy. The heart and great vessels are within normal limits.; Images of the upper abdomen demonstrate no evidence of adrenal mass.; The bony structures are free of lytic or blastic lesions.; IMPRESSION:; No evidence for pulmonary embolism.; Bilateral basilar atelectatic pulmonary changes.; Thank you for your kind referral of this patient.; ; Radiology Order: ECG WITH READING ER PHYS Test: ECG WITH READING ER PHYS REASON FOR EXAMINATION: CHEST PAIN; Stationary ECG Study; [facility] - ED; ; Test Date: 2016-05-25; Pat Name: BISHOP SAWANT JR Department:; Room: -; Gender: M Inspector Repairer: adam; : 1970 Requested By: FORTINO STRICKLAND; Order Number: [id number] Reading MD: Pauline Lr; Measurements; Intervals [place]; Rate: 82 P: 67; AR: 177 QRS: 56; QRSD: 97 T: 35; QT: 373; QTc: 438; Interpretive Statements; SINUS RHYTHM; SIMILAR 05/25/16 2:41; Electronically Signed On 05-26-2016 7:21:45 EST by Pauline Lr; Outcome: 09:58 Discharge ordered by Provider. sd1 10:18 Discharge Assessment: patient administered narcotics - no. The following High Risk po Discharge criteria are identified: None. Discharged to home ambulatory. Condition: improved. Discharge instructions given to patient, Instructed on discharge instructions, follow up and referral plans. medication usage, Demonstrated understanding of instructions, medications, Pt was receptive of discharge instructions/ teaching. Prescriptions given X 2. CT Study completed. Property sent home with patient. 10:19 Patient left the ED. po Signatures: Dispatcher [employer] EDMS Pauline Lr MD MD sd1 Khalida Lee, Broomcorn Scraper Unit deg Xu Rolle,RN RN po Annita Alexandra, Reg Reg gb Fortino Strickland DO DO cs11 McLear, Catina, SONOGRAPHY TECHNICIAN SONOGRAPHY TECHNICIAN tmm1 Geraldine Alicia,RN RN Pauline Zhang Paul, Reg Reg pm4 Chart Complete MTDD
--- NOTE | 2016-05-27 11:20 | EDDOCDS ---
Physician Documentation [facility] Name: Ramírez Diaz Jr Age: 45 yrs Sex: Male : 1970 Arrival Date: 05/25/2016 Time: 02:16 Bed OBSERVATION Private MD: Raisa Sagastume Disposition: 05/25/16 09:58 Discharged to Home/Self Care. Impression: Other chest pain. - Condition is Stable. - Discharge Instructions: Angina Pectoris, Pleurisy, Nonspecific Chest Pain, Chest Wall Pain, Costochondritis. - Prescriptions for Naprosyn 500 mg Oral Tablet - take 1 tablet by ORAL route 2 times per day take with food; 30 tablet. Aspirin 81 mg - take 1 tablet by ORAL route once daily; 90 tablet. - Medication Reconciliation, Local Pharmacy Hours form. - Follow up: Raisa Sagastume; When: 1 - 2 days. - Problem is new. - Symptoms have improved. Historical: - Allergies: PENICILLINS; - Home Meds: 1. none - PMHx: Crohn's; - PSHx: none; - Social history: Smoking status: Chewing Tobacco Patient/guardian denies using alcohol, street drugs, No barriers to communication noted, The patient speaks fluent [place]. - Family history: Not pertinent. - : The pt / caregiver states he / she is not on anticoagulants. Home medication list is obtained from the patient. - Exposure Risk Screening:: None identified. Vital Signs: 05/25 02:49 BP 139 / 82 (auto/); jp6 02:50 Pulse 88 MON; Pulse Ox 97% ; jp6 03:04 BP 142 / 79 (auto/); jp6 03:04 Pulse 84 MON; Pulse Ox 96% ; jp6 03:19 BP 143 / 76 (auto/); jp6 03:19 Pulse 88 MON; Pulse Ox 95% ; jp6 03:34 BP 131 / 68 (auto/); jp6 03:34 Pulse 86 MON; Pulse Ox 96% ; jp6 03:49 BP 144 / 77 (auto/); jp6 03:49 Pulse 92 MON; Pulse Ox 99% ; jp6 04:41 Pulse 94 MON; Pulse Ox 98% ; jp6 05:03 Pulse 98 MON; Pulse Ox 97% ; jp6 05:30 Pulse 96 MON; Pulse Ox 98% ; jp6 06:00 Pulse 88 MON; Pulse Ox 98% ; jp6 06:30 Pulse 86 MON; Pulse Ox 98% ; jp6 06:30 BP 147 / 92; Pulse 84; Resp 16; Pulse Ox 99% on R/A; Pain 0/10; jp6 07:06 BP 148 / 65 (auto/); po 07:08 Pulse 86 MON; Resp 20; Temp 96.9(O); Pulse Ox 99% on 2 lpm NC; Pain 0/10; po 08:06 BP 126 / 71 (auto/); po 08:06 Pulse 86 MON; Resp 18; Pulse Ox 98% on 2 lpm NC; Pain 0/10; po 08:36 BP 135 / 77 (auto/); po 08:36 Pulse 84 MON; Resp 20; Pulse Ox 98% on 2 lpm NC; Pain 0/10; po 09:24 BP 134 / 71 (auto/); po 09:27 Pulse 80 MON; Resp 20; Pulse Ox 96% on 2 lpm NC; po 10:15 BP 136 / 78; Pulse 82 MON; Resp 18; Temp 96.7(O); Pulse Ox 96% on R/A; Pain 0/10; po MDM: 02:40 ECG WITH READING ER PHYS+CARDIAG ordered. EDMS 02:44 Aspirin 324 mg PO once ordered. cs11 02:49 IV Saline Lock ordered. cs11 02:49 Oxygen at 2L/min via NC ordered. cs11 02:50 Chest, 1 View Ordered. EDMS 02:51 CBC Ordered. EDMS 02:51 MED Profile Ordered. EDMS 02:51 Pt & Aptt Ordered. EDMS 02:51 Cardiac Marker Panel Ordered. EDMS 03:03 Financial registration complete. pm4 03:58 [facility] Payment Agreement was scanned into [employer] and attached to record. pm4 05:12 CBC Reviewed. cs11 05:12 MED Profile Reviewed. cs11 05:12 Pt & Aptt Reviewed. cs11 05:12 Cardiac Marker Panel Reviewed. cs11 05:12 NS 0.9% 1000 ml IV at bolus once ordered. cs11 05:13 CT Chest Angio R/O PE Ordered. EDMS 06:28 Misc Insights Analyst Order ordered. cs11 06:49 Misc Insights Analyst Order complete. deg 06:49 CARDIAC MARKER PANEL Ordered. EDMS 06:50 ECG WITH READING ER PHYS ordered. EDMS 09:19 EKG-ADULT Reviewed. sd1 09:19 Chest, 1 View Reviewed. sd1 09:19 CT Chest Angio R/O PE Reviewed. sd1 09:49 CARDIAC MARKER PANEL Reviewed. sd1 10:35 T-Sheet-- Draft Copy was scanned into [employer] and attached to record. seh 10:36 Radiology Report was scanned into [employer] and attached to record. seh 10:37 ECG/EKG was scanned into [employer] and attached to record. se 13:09 Radiology Report was scanned into [employer] and attached to record. gb Administered Medications: 03:00 Drug: Aspirin 324 mg [aspirin 81 mg chewable tablet (4 tabs)] Route: PO; jp6 05:47 Drug: NS 0.9% 1000 ml [sodium chloride 0.9 % intravenous solution] Route: IV; Rate: jp6 bolus; Site: left antecubital; 08:27 Follow up: IV Status: Completed infusion; IV Intake: 1000ml po Signatures: Dispatcher [employer] Pauline Parada MD MD sd1 Khalida Lee, District Plant Engineer Unit deg Xu Rolle,RN RN po Annita Alexandra, Reg Reg gb Fortino Austin, DO cs11 Geraldine Alicia,RN RN jp6 Pauline Starr Paul, Reg Reg pm4 The chart was reviewed and I authenticate all verbal orders and agree with the evaluation and treatment provided.Attachments: 03:58 [facility] Payment Agreement pm4 10:35 T-Sheet-- Draft Copy se 10:37 ECG/EKG se Chart Complete MTDD
--- NOTE | 2016-05-27 11:20 | EDDOCDS ---
Physician Documentation [facility] Name: Ramírez Diaz Jr Age: 45 yrs Sex: Male : 1970 Arrival Date: 05/25/2016 Time: 02:16 Bed OBSERVATION Private MD: Raisa Sagastume Disposition: 05/25/16 09:58 Discharged to Home/Self Care. Impression: Other chest pain. - Condition is Stable. - Discharge Instructions: Angina Pectoris, Pleurisy, Nonspecific Chest Pain, Chest Wall Pain, Costochondritis. - Prescriptions for Naprosyn 500 mg Oral Tablet - take 1 tablet by ORAL route 2 times per day take with food; 30 tablet. Aspirin 81 mg - take 1 tablet by ORAL route once daily; 90 tablet. - Medication Reconciliation, Local Pharmacy Hours form. - Follow up: Raisa Sagastume; When: 1 - 2 days. - Problem is new. - Symptoms have improved. Historical: - Allergies: PENICILLINS; - Home Meds: 1. none - PMHx: Crohn's; - PSHx: none; - Social history: Smoking status: Chewing Tobacco Patient/guardian denies using alcohol, street drugs, No barriers to communication noted, The patient speaks fluent [place]oc[place]. - Family history: Not pertinent. - : The pt / caregiver states he / she is not on anticoagulants. Home medication list is obtained from the patient. - Exposure Risk Screening:: None identified. Vital Signs: 05/25 02:49 BP 139 / 82 (auto/); jp6 02:50 Pulse 88 MON; Pulse Ox 97% ; jp6 03:04 BP 142 / 79 (auto/); jp6 03:04 Pulse 84 MON; Pulse Ox 96% ; jp6 03:19 BP 143 / 76 (auto/); jp6 03:19 Pulse 88 MON; Pulse Ox 95% ; jp6 03:34 BP 131 / 68 (auto/); jp6 03:34 Pulse 86 MON; Pulse Ox 96% ; jp6 03:49 BP 144 / 77 (auto/); jp6 03:49 Pulse 92 MON; Pulse Ox 99% ; jp6 04:41 Pulse 94 MON; Pulse Ox 98% ; jp6 05:03 Pulse 98 MON; Pulse Ox 97% ; jp6 05:30 Pulse 96 MON; Pulse Ox 98% ; jp6 06:00 Pulse 88 MON; Pulse Ox 98% ; jp6 06:30 Pulse 86 MON; Pulse Ox 98% ; jp6 06:30 BP 147 / 92; Pulse 84; Resp 16; Pulse Ox 99% on R/A; Pain 0/10; jp6 07:06 BP 148 / 65 (auto/); po 07:08 Pulse 86 MON; Resp 20; Temp 96.9(O); Pulse Ox 99% on 2 lpm NC; Pain 0/10; po 08:06 BP 126 / 71 (auto/); po 08:06 Pulse 86 MON; Resp 18; Pulse Ox 98% on 2 lpm NC; Pain 0/10; po 08:36 BP 135 / 77 (auto/); po 08:36 Pulse 84 MON; Resp 20; Pulse Ox 98% on 2 lpm NC; Pain 0/10; po 09:24 BP 134 / 71 (auto/); po 09:27 Pulse 80 MON; Resp 20; Pulse Ox 96% on 2 lpm NC; po 10:15 BP 136 / 78; Pulse 82 MON; Resp 18; Temp 96.7(O); Pulse Ox 96% on R/A; Pain 0/10; po MDM: 02:40 ECG WITH READING ER PHYS+CARDIAG ordered. EDMS 02:44 Aspirin 324 mg PO once ordered. cs11 02:49 IV Saline Lock ordered. cs11 02:49 Oxygen at 2L/min via NC ordered. cs11 02:50 Chest, 1 View Ordered. EDMS 02:51 CBC Ordered. EDMS 02:51 MED Profile Ordered. EDMS 02:51 Pt & Aptt Ordered. EDMS 02:51 Cardiac Marker Panel Ordered. EDMS 03:03 Financial registration complete. pm4 03:58 [facility] [place] into [employer] and attached to record. pm4 05:12 CBC Reviewed. cs11 05:12 MED Profile Reviewed. cs11 05:12 Pt & Aptt Reviewed. cs11 05:12 Cardiac Marker Panel Reviewed. cs11 05:12 NS 0.9% 1000 ml IV at bolus once ordered. cs11 05:13 CT Chest Angio R/O PE Ordered. EDMS 06:28 Misc Concrete Mixer Order ordered. cs11 06:49 Misc Concrete Mixer Order complete. deg 06:49 CARDIAC MARKER PANEL Ordered. EDMS 06:50 ECG WITH READING ER PHYS ordered. EDMS 09:19 EKG-ADULT Reviewed. sd1 09:19 Chest, 1 View Reviewed. sd1 09:19 CT Chest Angio R/O PE Reviewed. sd1 09:49 CARDIAC MARKER PANEL Reviewed. sd1 10:35 T-Sheet-- Draft Copy was scanned into [employer] and attached to record. seh 10:36 Radiology Report was scanned into [employer] and attached to record. seh 10:37 ECG/EKG was scanned into [employer] and attached to record. se 13:09 Radiology Report was scanned into [employer] and attached to record. gb Administered Medications: 03:00 Drug: Aspirin 324 mg [aspirin 81 mg chewable tablet (4 tabs)] Route: PO; jp6 05:47 Drug: NS 0.9% 1000 ml [sodium chloride 0.9 % intravenous solution] Route: IV; Rate: jp6 bolus; Site: left antecubital; 08:27 Follow up: IV Status: Completed infusion; IV Intake: 1000ml po Signatures: Dispatcher [employer] Pauline Parada MD MD sd1 Khalida Lee, Stock Taker Unit deg Xu Rolle,RN RN po Annita Alexandra, Reg Reg gb Fortino Austin, DO cs11 Geraldine Alicia,RN RN jp6 Pauline Starr Paul, Reg Reg pm4 The chart was reviewed and I authenticate all verbal orders and agree with the evaluation and treatment provided.Attachments: 03:58 [facility] Payment Agreement pm4 10:35 T-Sheet-- Draft Copy se 10:37 ECG/EKG se Chart Complete MTDD
== END 2016-05-25 10:19 | disposition home or self-care (01) ==
LOC: M ED 02:16
DX: R07.9 Chest pain, unspecified (principal); K50.90 Crohn's disease, unspecified, without complications; Z88.0 Allergy status to penicillin; F17.220 Nicotine dependence, chewing tobacco, uncomplicated
CPT/HCPCS: 36415; 71010; 71275; 80048; 82550; 82553; 84484; 85027; 85610; 85730; 93005; 96360; 96361; 99285; Q9967

== ENCOUNTER 2017-10-03 23:16 | Emergency (ER) | payer MEDICARE, MEDICAID | END 2017-10-04 01:00 | disposition left against medical advice (07) | LOC: M ED 23:16 | DX: S69.92XA Unspecified injury of left wrist, hand and finger(s), initial encounter (principal); X58.XXXA Exposure to other specified factors, initial encounter; Y92.9 Unspecified place or not applicable; Y93.9 Activity, unspecified; Y99.9 Unspecified external cause status; Z53.21 Procedure and treatment not carried out due to patient leaving prior to being seen by health care provider | CPT/HCPCS: 99281 ==

== ENCOUNTER 2018-04-02 15:12 | Emergency (ER) | payer MEDICARE, MEDICAID ==
[2018-04-02 15:51] LABS: BASO % 0.4 % (0.0-1.0); EOS # 0.1 10^3/uL (0.0-0.50); EOS % 1.4 % (0.0-3.0); HEMATOCRIT 47.2 % (42.0-52.0); IMMATURE GRANULOCYTE % 0.5 % (0-3.0); LYMPH # 1.5 10^3/uL (1.5-4.5); LYMPH % 18.5 % (24.0-44.0); MEAN CORPUSCULAR HEMOGLOBIN 28.8 pg (27.0-33.0); MEAN CORPUSCULAR HGB CONC 33.9 g/dl (32.0-36.5); MEAN CORPUSCULAR VOLUME 84.9 fl (80.0-96.0); MONO # 0.4 10^3/uL (0.0-0.8); MONO % 4.9 % (0.0-5.0); NEUTROPHILS # 6.2 10^3/uL (1.8-7.7); NEUTROPHILS % 74.3 % (36.0-66.0); PLATELET COUNT, AUTOMATED 243 10^3/uL (150-450); RED BLOOD COUNT 5.56 10^6/uL (4.30-6.10); RED CELL DISTRIBUTION WIDTH 12.5 % (11.5-14.5); WHITE BLOOD COUNT 8.3 10^3/uL (4.0-10.0)
[2018-04-02] MEDS: NS 1,000 ML IV (15:53)
[2018-04-02] MEDS: ASPIRIN 81 MG CHEW TABLET PO (15:53)
[2018-04-02] MEDS: GI COCKTAIL 50ML BTL(HYOSCYAMINE/MAALOX/LIDOCAINE VISCOUS)(1:3:1) PO (15:54)
[2018-04-02 16:01] LABS: INR 0.98; PROTHROMBIN TIME 13.1 SECONDS (12.1-14.4)
[2018-04-02 16:20] LABS: ALBUMIN 3.6 GM/DL (3.2-5.2); ALBUMIN/GLOBULIN RATIO 0.97 (1.00-1.93); ALKALINE PHOSPHATASE 83 U/L (45-117); ALT/SGPT 39 U/L (12-78); ANION GAP 7 MEQ/L (8-16); AST/SGOT 17 U/L (7-37); BILIRUBIN,DIRECT 0.1 MG/DL (0.0-0.2); BILIRUBIN,TOTAL 0.5 MG/DL (0.2-1.0); BLOOD UREA NITROGEN 11 MG/DL (7-18); CALCIUM LEVEL 9.2 MG/DL (8.5-10.1); CARBON DIOXIDE LEVEL 28 MEQ/L (21-32); CHLORIDE LEVEL 108 MEQ/L (98-107); CK-MB VALUE MASS < 1.0 NG/ML (<3.6); CPK CREATINE PHOSPHOKINASE 75 U/L (39-308); CREATININE FOR GFR 1.09 MG/DL (0.70-1.30); GLOMERULAR FILTRATION RATE > 60.0 (>60); GLUCOSE, FASTING 109 MG/DL (70-100); LIPASE 97 U/L (73-393); MB/CK RELATIVE INDEX 1.33 (< OR =4); POTASSIUM SERUM 4.2 MEQ/L (3.5-5.1); SODIUM LEVEL 143 MEQ/L (136-145); TOTAL PROTEIN 7.3 GM/DL (6.4-8.2); TROPONIN I < 0.02 NG/ML (< 0.10)
[2018-04-02 19:19] LABS: CK-MB VALUE MASS < 1.0 NG/ML (<3.6); CPK CREATINE PHOSPHOKINASE 77 U/L (39-308); TROPONIN I < 0.02 NG/ML (< 0.10)
== END 2018-04-02 19:43 | disposition home or self-care (01) ==
LOC: M ED 15:12
DX: R07.89 Other chest pain (principal); I10 Essential (primary) hypertension; E78.5 Hyperlipidemia, unspecified; I25.10 Atherosclerotic heart disease of native coronary artery without angina pectoris; Z79.899 Other long term (current) drug therapy; Z88.0 Allergy status to penicillin; Z91.030 Bee allergy status
CPT/HCPCS: 71046

== ENCOUNTER 2021-09-16 16:00 | Emergency (ER) | payer OTHER, MEDICARE, MEDICAID ==
[~2021-09-16] VITALS: Ht 175.3 cm; Wt 151.8 kg
[~2021-09-16 16:00] MED LIST: DRIS50003 PO; LISI20TA33 PO; OMEP1CAP73 PO
[2021-09-16 17:46] VITALS: BP 151/81
== END 2021-09-16 17:47 | disposition home or self-care (01) ==
LOC: M ED 16:00
DX: S86.812A Strain of other muscle(s) and tendon(s) at lower leg level, left leg, initial encounter (principal); W01.0XXA Fall on same level from slipping, tripping and stumbling without subsequent striking against object, initial encounter; Y92.511 Restaurant or cafe as the place of occurrence of the external cause; Z88.0 Allergy status to penicillin; Z91.030 Bee allergy status

== ENCOUNTER → 2021-09-20 | Outpatient (CLI) | payer OTHER, MEDICARE, MEDICAID | LOC: M SOG 07:54 | PROVIDERS: ATTEND Orthopaedic Surgery Adult Reconstructive Orthopaedic Surgery | DX: M25.562 Pain in left knee (principal) ==

== ENCOUNTER → 2021-10-10 | Outpatient (CLI) | payer OTHER, MEDICARE, MEDICAID | LOC: M PLAIMG 12:07 | PROVIDERS: ATTEND Orthopaedic Surgery Adult Reconstructive Orthopaedic Surgery | DX: Z53.9 Procedure and treatment not carried out, unspecified reason (principal) ==

== ENCOUNTER → 2021-11-21 | Outpatient (CLI) | payer OTHER, MEDICARE, MEDICAID | LOC: M SOG 09:45 | PROVIDERS: ATTEND Orthopaedic Surgery Adult Reconstructive Orthopaedic Surgery | DX: M25.562 Pain in left knee (principal) ==

== ENCOUNTER → 2022-01-28 | Outpatient (CLI) | payer OTHER, MEDICARE, MEDICAID | LOC: M SOG 09:41 | PROVIDERS: ATTEND Orthopaedic Surgery Adult Reconstructive Orthopaedic Surgery | DX: M25.561 Pain in right knee (principal) ==

== ENCOUNTER → 2022-07-10 | Outpatient (CLI) | payer OTHER, MEDICARE, MEDICAID | LOC: M SOG 11:42 | PROVIDERS: ATTEND Orthopaedic Surgery Adult Reconstructive Orthopaedic Surgery | DX: S82.142D Displaced bicondylar fracture of left tibia, subsequent encounter for closed fracture with routine healing (principal); S83.412D Sprain of medial collateral ligament of left knee, subsequent encounter; S89.91XD Unspecified injury of right lower leg, subsequent encounter ==

== ENCOUNTER → 2023-10-27 | Outpatient (CLI) | payer OTHER, MEDICARE, MEDICAID | LOC: M SOG 07:59 | PROVIDERS: ATTEND Physician Assistant | DX: M25.562 Pain in left knee (principal) ==

== ENCOUNTER → 2025-04-23 | Outpatient (CLI) | payer MEDICARE, MEDICAID ==
[2025-04-23 09:16] LABS: PLATELET COUNT, AUTOMATED 289 10^3/uL (150-450)
[2025-04-23 09:40] LABS: ALT/SGPT 36.0 U/L (7.0-40); AST/SGOT 21.0 U/L (<34); CALCIUM LEVEL 9.1 MG/DL (8.5-10.1); CARBON DIOXIDE LEVEL 28.0 MMOL/L (20-31); CHLORIDE LEVEL 103.0 MMOL/L (98-107); CHOLESTEROL LEVEL 178.0 MG/DL (<200); CHOLESTEROL RISK RATIO 5.63 (<5); CREATININE FOR GFR 1.14 MG/DL (0.70-1.30); GLOMERULAR FILTRATION RATE 76.4 (>56); LDL CHOLESTEROL 117.0 MG/DL (<100); NON-HDL-C 146.4 MG/DL; POTASSIUM SERUM 4.5 MMOL/L (3.5-5.1); SODIUM LEVEL 139.0 MMOL/L (136-145); TRIGLYCERIDES LEVEL 147.0 MG/DL (<150)
[2025-04-23 09:47] LABS: TOTAL 25(OH) VITAMIN D 19.2 NG/ML (20.0-100.0)
== END ==
LOC: M LAB 08:06
DX: I10 Essential (primary) hypertension (principal)